=== PATIENT | female | born 1990 | race American Indian/Alaskan Native ===

== ENCOUNTER 2019-05-28 12:06 | Emergency (ER) | payer OTHER ==
[~2019-05-28] VITALS: Ht 167.6 cm; Wt 84.4 kg
[2019-05-28 12:13] VITALS: Ht 167.6 cm; Wt 84.4 kg
[2019-05-28 14:17] VITALS: BP 91/49
== END 2019-05-28 14:18 | disposition home or self-care (01) ==
LOC: ED 12:06
DX: O99.512 Diseases of the respiratory system complicating pregnancy, second trimester (principal); J20.9 Acute bronchitis, unspecified; Z3A.18 18 weeks gestation of pregnancy